=== PATIENT | male | born 1985 | race Two or more races ===

== ENCOUNTER 2021-01-21 16:45 | Emergency (ER) | payer OTHER ==
[~2021-01-21] VITALS: Ht 157.5 cm; Wt 68.0 kg
[2021-01-21 17:06] VITALS: BP 140/76
--- NOTE | 2021-01-21 17:27 | NUR ---
SEEN AND EXAMINED BY SWETHA ZAPATA.
[2021-01-21] MEDS ORDERED: FAMOTIDINE (20 MG) 20 MG TABLET PO ONE (17:30)
[2021-01-21] MEDS ORDERED: diphenhydrAMINE HCL 50 MG CAPSULE PO ONE (17:30)
[2021-01-21] MEDS ORDERED: CEFTRIAXONE 1 G VIAL IM ONE (17:30)
[2021-01-21] MEDS ORDERED: DEXAMETHASONE SOD PHOSPHATE 4 MG/ML VIAL IM ONE (17:30)
[2021-01-21] MEDS ORDERED: CEFTRIAXONE 500 MG VIAL ONE (17:39)
[2021-01-21] MEDS ORDERED: FAMOTIDINE (20 MG) 20 MG TABLET ONE (17:39)
[2021-01-21] MEDS ORDERED: diphenhydrAMINE HCL 50 MG CAPSULE ONE (17:39)
[2021-01-21] MEDS ORDERED: DEXAMETHASONE SOD PHOSPHATE 10 MG/ML VIAL ONE (17:39)
[2021-01-21 17:51] LABS: BILIRUBIN,URINE Negative (NEGATIVE); COLOR,URINE YELLOW (YELLOW); LEUKOCYTE ESTERASE ,URINE Moderate (NEGATIVE); NITRITE, URINE Negative (NEGATIVE); PROTEIN,URINE 100 mg/dl (NEGATIVE); UGLUCOSE Negative (NEGATIVE); UROBILINOGEN,URINE 0.2 EU/dL (0.2)
--- NOTE | 2021-01-21 18:02 | NUR ---
URINE SPECIMEN OBTAINED AND SENT TO LAB.
[2021-01-21 18:04] LABS: BACTERIA,URINE Few /HPF (None Seen); SPERM,URINE Few /HPF (None Seen); SQUAMOUS EPITHELIAL CELL,UR Few /HPF (None Seen); WBC,URINE TOO NUMEROUS TO COUN /HPF (0-3)
[2021-01-21] MEDS ORDERED: DOXY100C2 PO (18:24)
[2021-01-21] MEDS ORDERED: FAMO-131 PO (18:24)
[2021-01-21] MEDS ORDERED: DIPH25TA25 PO (18:24)
--- NOTE | 2021-01-21 18:31 | NUR ---
Patient discharged to home in stable condition. Written and verbal after care instructions given. Patient verbalizes understanding of instruction.
== END 2021-01-21 18:32 | disposition home or self-care (01) ==
LOC: ER 16:52
DX: N34.2 Other urethritis (principal); R36.9 Urethral discharge, unspecified; R21 Rash and other nonspecific skin eruption; Z79.899 Other long term (current) drug therapy
CPT/HCPCS: 81001; 87086; 87491; 87591; 96372 ×2; 99284; J0696; J1100; Q0163

== ENCOUNTER 2023-06-03 01:04 | Emergency (ER) | payer MEDICAID, OTHER ==
[~2023-06-03] VITALS: Ht 172.7 cm; Wt 99.8 kg
[~2023-06-03 01:04] MED LIST: DIPH25TA25 PO; DOXY100C2 PO; FAMO-131 PO
[2023-06-03] MEDS ORDERED: IBUPROFEN 400 MG TABLET PO ONE (02:00)
[2023-06-03] MEDS ORDERED: ACETAMINOPHEN ES 500 MG TABLET PO ONE (02:00)
[2023-06-03] MEDS ORDERED: ACETAMINOPHEN ES 500 MG TABLET ONE (02:12)
[2023-06-03] MEDS ORDERED: IBUPROFEN 400 MG TABLET ONE (02:13)
[2023-06-03] MEDS ORDERED: IBUP-1953 PO (05:39)
[2023-06-03 07:24] VITALS: BP 121/79; TEMP 98.4; O2SAT 98
== END 2023-06-03 07:24 | disposition home or self-care (01) ==
LOC: ER 01:05
DX: S90.31XA Contusion of right foot, initial encounter (principal); W23.0XXA Caught, crushed, jammed, or pinched between moving objects, initial encounter; Y93.89 Activity, other specified; Y92.89 Other specified places as the place of occurrence of the external cause; Y99.8 Other external cause status
CPT/HCPCS: 73630-TC